=== PATIENT | female | born 1940 | race Caucasian/White ===

== ENCOUNTER → 2018-05-31 | Outpatient (CLI) | payer OTHER | LOC: FIMAGING 10:09 | PROVIDERS: ATTEND Physician Assistant | DX: R06.89 Other abnormalities of breathing (principal); J98.4 Other disorders of lung ==

== ENCOUNTER 2018-06-09 22:12 | Inpatient (IN) | payer OTHER ==
--- NOTE | 2018-06-09 22:30 | EDPHY ---
H & P Stated Complaint: TOLD SHE MAY HAVE A BLOOD CLOT. D-DIMER 0.87 TODAY Time Seen by Provider: 06/09/18 22:30 HPI/ROS: HPI CHIEF COMPLAINT: Positive D-dimer by her primary care doctor referred to the emergency room. HISTORY OF PRESENT ILLNESS: Patient is a 78-year-old female, she has a history of hypertension, hyperlipidemia, recently moved from [facility] to [facility] in February. She just establish care with a primary care doctor today. She saw them for shortness of breath. She states she has been chronically short of breath over the past few months getting worse. She states she has wheezing at times. Her primary care doctor send a D-dimer on her which turned out to be positive. She was referred to the emergency room due to this. The patient denies any chest pain. Denies pleuritic pain, denies hemoptysis. She denies any history of cardiovascular disease, denies history of CVA or PE, denies history of DVT. Past Medical History: Hypertension, hyperlipidemia Past Surgical History: Denies recent surgical history Social History: Denies drugs alcohol tobacco. Family History: Noncontributory ROS REVIEW OF SYSTEMS: 10 Systems were reviewed and negative with the exception of the elements mentioned in the history of present illness. Exam Constitutional triage nursing summary reviewed, vital signs reviewed, awake/ alert. Appears well nontoxic no acute distress Eyes normal conjunctivae and sclera, EOMI, PERRLA. HENT normal inspection, atraumatic, moist mucus membranes, no epistaxis, neck supple/ no meningismus, no raccoon eyes. Respiratory she has a bronchitic sounding cough on exam. Otherwise rather clear lungs. Cardiovascular rate normal, regular rhythm, no murmur, no edema, distal pulses normal. Gastrointestinal soft, non-tender, no rebound, no guarding, normal bowel sounds, no distension, no pulsatile mass. Genitourinary no CVA tenderness. Musculoskeletal no midline vertebral tenderness, full range of motion, no calf swelling, no tenderness of extremities, no meningismus, good pulses, neurovascularly intact. Skin pink, warm, & dry, no rash, skin atraumatic. Neurologic awake, alert and oriented x 3, AAOx3, moves all 4 extremities equally, motor intact, sensory intact, CN II-XII intact, normal cerebellar, normal vision, normal speech. Psychiatric normal mood/affect. Heme/Lymph/Immune no lymphadenopathy. Differential Diagnosis: Differential diagnosis includes but is not limited to: ACS, atypical chest pain, pneumothorax, pneumonia, pulmonary embolism, aortic dissection, congestive heart failure, tumor, musculoskeletal pain, esophageal pain, GERD, peptic ulcer disease, pancreatitis Medical Decision Making: Plan for this patient IV establishment with blood draw , CT angiogram of the chest rule out pulmonary embolism, basic labs, EKG, troponin. Re-evaluate. Re-evaluation: EKG interpretation by me on record in [facility] system. Impression time of EKG 2242, sinus tach 106, minimal ST depression lead V4 V5 V6, lead 1 aVL. No other acute ST elevation. CT angiogram of the chest faxed me by direct Radiology at time 1:16 a.m., no acute findings on CTA of the chest. Patient's troponin is pending. Patient's EKG has ST depression. Given the patient's unexplained shortness of breath plan will be for observation tonight in the hospital for further cardiac evaluation given her ischemic EKG. She does not have any chest pain. She does endorse worsening shortness of breath over the last 3 months with dyspnea on exertion. The hospitalist service consult Dr. Osborne agrees to admit Source: Patient - Personal History Current Tetanus/Diphtheria Vaccine: Yes Current Tetanus Diphtheria and Acellular Pertussis (TDAP): Yes - Medical/Surgical History Hx Asthma: Yes Hx Chronic Respiratory Disease: No Hx Diabetes: No Hx Cardiac Disease: No Hx Renal Disease: No Hx Cirrhosis: No Hx Alcoholism: No Hx HIV/AIDS: No Hx Splenectomy or Spleen Trauma: No Other PMH: LUMPECTOMY BREAST, BREAST CA, HIGH CHOLSETEROL, HTN - Social History Smoking Status: Former smoker Constitutional: Initial Vital Signs Temperature (C) 37.3 C 06/09/18 22:17 Heart Rate 118 H 06/09/18 22:17 Respiratory Rate 18 06/09/18 22:17 Blood Pressure 157/94 H 06/09/18 22:17 O2 Sat (%) 92 06/09/18 22:17 O2 Delivery Mode Room Air Allergies/Adverse Reactions: No Known Allergies Allergy (Unverified 06/09/18 22:20) Home Medications: Medication Instructions Recorded Hydrochlorothiazide [HCTZ (*)] 25 mg PO DAILY 06/09/18 Losartan/Hctz 50/12.5 [Hyzaar 1 tab PO 06/09/18 50/12.5MG (*)] Simvastatin 20 mg PO 06/09/18 Medical Decision Making - Data Points Laboratory Results: Laboratory Results 06/09/18 23:45 06/09/18 23:00 06/09/18 06/09/18 23:45 23:00 WBC 7.08 10^3/uL 10^3/uL (3.80-9.50) RBC 4.95 10^6/uL 10^6/uL (4.18-5.33) Hgb 14.5 g/dL g/dL (12.6-16.3) Hct 44.4 % % (38.0-47.0) MCV 89.7 fL fL (81.5-99.8) MCH 29.3 pg pg (27.9-34.1) MCHC 32.7 g/dL g/dL (32.4-36.7) RDW 14.6 % % (11.5-15.2) Plt Count 244 10^3/uL 10^3/uL (150-400) MPV 9.0 fL fL (8.7-11.7) Neut % (Auto) 44.8 % % (39.3-74.2) Lymph % (Auto) 39.1 % % (15.0-45.0) [place] % (Auto) 11.7 % % (4.5-13.0) Eos % (Auto) 3.7 % % (0.6-7.6) Baso % (Auto) 0.6 % % (0.3-1.7) Nucleat RBC Rel Count 0.0 % % (0.0-0.2) Absolute Neuts (auto) 3.17 10^3/uL 10^3/uL (1.70-6.50) Absolute Lymphs (auto) 2.77 10^3/uL 10^3/uL (1.00-3.00) Absolute Monos (auto) 0.83 10^3/uL H 10^3/uL (0.30-0.80) Absolute Eos (auto) 0.26 10^3/uL 10^3/uL (0.03-0.40) Absolute Basos (auto) 0.04 10^3/uL 10^3/uL (0.02-0.10) Absolute Nucleated RBC 0.00 10^3/uL 10^3/uL (0-0.01) Immature Gran % 0.1 % % (0.0-1.1) Immature Gran # 0.01 10^3/uL 10^3/uL (0.00-0.10) Sodium 139 mEq/L mEq/L (135-145) Potassium 3.4 mEq/L L mEq/L (3.5-5.2) Chloride 108 mEq/L mEq/L (97-110) Carbon Dioxide 20 mEq/l L mEq/l (22-31) Anion Gap 11 mEq/L mEq/L (6-14) BUN 29 mg/dL H mg/dL (7-23) Creatinine 1.1 mg/dL H mg/dL (0.6-1.0) Estimated GFR 48 Glucose 147 mg/dL H mg/dL (70-100) Calcium 8.7 mg/dL mg/dL (8.5-10.4) NT-Pro-B Natriuret Pep 35 pg/mL pg/mL (0-450) Medications Given: Discontinued Medications Albuterol/Ipratropium (Duoneb) 3 ml IH EDNOW ONE Stop: 06/09/18 22:36 Last Admin: 06/09/18 23:05 Dose: 3 ml Calcium Carbonate (Tums) 500 mg PO EDNOW ONE Stop: 06/09/18 23:10 Last Admin: 06/09/18 23:11 Dose: 500 mg Sodium Chloride (Ns) 1,000 mls @ 0 mls/hr IV EDNOW ONE; Wide Open PRN Reason: Protocol Stop: 06/09/18 22:32 Last Admin: 06/09/18 23:05 Dose: 1,000 mls Departure - Departure Disposition: [facility] Inpatient Acute Clinical Impression: Dyspnea Condition: Fair Referrals: Marcy Russell MD [Primary Care Provider] - As per Instructions
[2018-06-09] MEDS ORDERED: NS 1,000 ML IV ONE (22:31)
[2018-06-09] MEDS ORDERED: IPRATROPIUM/ALBUTEROL 3 ML DEYVIAL IH ONE (22:35)
[2018-06-09] MEDS ORDERED: CALCIUM CARBONATE 500 MG CHEWABLE TAB PO ONE ×2 (23:08→23:09)
[2018-06-09 23:59] LABS: PLATELET COUNT 244 10^3/uL (150-400)
[2018-06-10] MEDS ORDERED: IOPAMIDOL (ISOVUE 370) 100 ML BTL IV ONE (00:07)
[2018-06-10] MEDS ORDERED: methylPREDNISolone SOD SUCC 125 MG/2 ML VIAL IVP ONE (01:48)
[2018-06-10] MEDS ORDERED: ONDANSETRON DISINTEGRATING 4 MG TAB PO PRN (01:48)
[2018-06-10] MEDS ORDERED: ONDANSETRON 4 MG/2 ML VIAL IVP PRN (01:48)
[2018-06-10] MEDS ORDERED: ACETAMINOPHEN 325 MG TAB PO PRN (01:48)
[2018-06-10] MEDS ORDERED: ALBUTEROL 3 ML DEYVIAL IH PRN (01:48)
[2018-06-10] MEDS ORDERED: NS 1,000 ML IV SCH (02:00)
[2018-06-10 04:24] LABS: PLATELET COUNT 239 10^3/uL (150-400)
--- NOTE | 2018-06-10 07:55 | PDGENHP ---
History and Physical - Chief Complaint Shortness of breath - History of Present Illness Source-patient provides history appears reliable. EMR was reviewed and case discussed with ED provider. HPI-this is a very pleasant 78-year-old female with past medical history significant for HTN, HLD, breast cancer in remission, asthma who presents emergency department today from her PCPs office with noted elevated D-dimer as well as progressive shortness of breath. Patient reports that her symptoms have been ongoing for several months even prior to arriving to [place]. She was previously living in [facility] and moved in February. She is currently step early staying with her daughter. She saw her PCP today for worsening dyspnea. Patient reports that she has been having increasing wheezing. She feels like she has type chest tightness that is intermittent regardless of rest or exertion. She does report increasing cough and congestion in the ED following an nebulizer treatment. She denies any fevers or chills. No rhinorrhea no sore throat. She did experience some increased nausea today no vomiting. Patient reports occasional PND but nothing recently last several weeks. She denies any orthopnea or lower extremity edema. Patient does not wear any oxygen at home. Additionally patient reports that she had a full cardiac workup in [facility] within the past year. She denies any history of CHF, pulmonary hypertension or abnormal stress test. No family history of CAD or [place]. History Information - Allergies/Home Medication List Allergies/Adverse Reactions: No Known Allergies Allergy (Unverified 06/09/18 22:20) Home Medications: Hydrochlorothiazide [HCTZ (*)] 25 mg PO DAILY 06/09/18 [Last Taken Unknown] Losartan/Hctz 50/12.5 [Hyzaar 50/12.5MG (*)] 1 tab PO 06/09/18 [Last Taken Unknown] Simvastatin 20 mg PO 06/09/18 [Last Taken Unknown] I have personally reviewed and updated: family history, medical history, social history, surgical history - Past Medical History Additional medical history: HTN, HLD, asthma, skin cancer resected, breast cancer in remission. - Surgical History Additional surgical history: Breast lumpectomy with XRT for, right total knee arthroplasty, right shoulder repair - Family History Additional family history: Mother with history hypertension. No family members with CAD/mi. - Social History Smoking Status: Former smoker Tobacco Use: Cigarettes (Patient quit smoking 20 years ago.) Alcohol Use: None Drug Use: None Additional social history: Patient recently moved from [facility] 02/2018 to [facility]. She is temporarily living with her daughter and her family. Cor status-full. Review of Systems Review of Systems: ROS: 10pt was reviewed & negative except for what was stated in HPI & below Constitutional: Reports: no symptoms EENMT: Reports: no symptoms Cardiac: Reports: chest pain (Chest tightness central bilateral, nonradiating.) . Denies: edema, lightheadedness, palpitations Respiratory: Reports: cough, shortness of breath, wheezing. Denies: orthopnea Gastrointestinal: Reports: nausea. Denies: vomitting, diarrhea Genitourinary: Denies: discharge, hematuria Muscolosketal: Reports: no symptoms Skin: Reports: no symptoms Neurological: Reports: no symptoms Hematologic/Lymphatic: Reports: no symptoms Physical Exam Physical Exam: Selected Entries 06/09/18 22:17 Blood Pressure Automatic Method Heart Rate 118 H Respiratory 18 Rate O2 Sat (%) 92 Temperature (C) 37.3 C Blood Pressure 157/94 H Mean Arterial 115 H Pressure (MAP) O2 Delivery Room Air Mode Temperature Oral Source Temp Pulse Resp BP Pulse Ox 36.4 C 94 18 148/79 H 95 06/10/18 03:14 06/10/18 03:14 06/10/18 03:14 06/10/18 03:14 06/10/18 03:14 Constitutional: no apparent distress, chronically ill appearing, obese Eyes: PERRL (Slightly decreased reactivity light bilaterally but symmetric.), anicteric sclera, EOMI, No scleral injection Ears, Nose, Mouth, Throat: moist mucous membranes, other (No nasal discharge), No poor dentition Cardiovascular: regular rate and rhythym, no murmur, rub, or gallop, pulses symmetric bilaterally, No edema Peripheral Pulses: 1+: dorsalis-pedis (R), dorsalis-pedis (L) Respiratory: no respiratory distress, expiratory wheeze, inspiratory crackles ( Bibasilar intermittent), other (Congested-sounding cough intermittently during the interview.), No rhonchi Gastrointestinal: normoactive bowel sounds, soft, non-tender abdomen, no palpable masses, other (Obese abdomen), No distension Genitourinary: no bladder tenderness, No overton in urethra Skin: warm, normal color, no rashes or abrasions Musculoskeletal: full muscle strength (Four to 5/5 strength upper lower extremities. Patient able to sit up independently.), No pain with ROM Neurologic: AAOx3, sensation intact bilaterally, other (Grossly nonfocal exam.) , No weakness, No numbness, No facial droop Psychiatric: interacting appropriately, not anxious, not encephalopathic, thought process linear, No anxious Lab Data & Imaging Review 06/10/18 03:40 06/10/18 03:40 WBC 5.96 10^3/uL (3.80-9.50) 06/10/18 03:40 RBC 4.68 10^6/uL (4.18-5.33) 06/10/18 03:40 Hgb 13.7 g/dL (12.6-16.3) 06/10/18 03:40 Hct 42.1 % (38.0-47.0) 06/10/18 03:40 MCV 90.0 fL (81.5-99.8) 06/10/18 03:40 MCH 29.3 pg (27.9-34.1) 06/10/18 03:40 MCHC 32.5 g/dL (32.4-36.7) 06/10/18 03:40 RDW 14.8 % (11.5-15.2) 06/10/18 03:40 Plt Count 239 10^3/uL (150-400) 06/10/18 03:40 MPV 9.3 fL (8.7-11.7) 06/10/18 03:40 Neut % (Auto) 55.6 % (39.3-74.2) 06/10/18 03:40 Lymph % (Auto) 32.7 % (15.0-45.0) 06/10/18 03:40 [place] % (Auto) 8.1 % (4.5-13.0) 06/10/18 03:40 Eos % (Auto) 2.9 % (0.6-7.6) 06/10/18 03:40 Baso % (Auto) 0.5 % (0.3-1.7) 06/10/18 03:40 Nucleat RBC Rel Count 0.0 % (0.0-0.2) 06/10/18 03:40 Absolute Neuts (auto) 3.32 10^3/uL (1.70-6.50) 06/10/18 03:40 Absolute Lymphs (auto) 1.95 10^3/uL (1.00-3.00) 06/10/18 03:40 Absolute Monos (auto) 0.48 10^3/uL (0.30-0.80) 06/10/18 03:40 Absolute Eos (auto) 0.17 10^3/uL (0.03-0.40) 06/10/18 03:40 Absolute Basos (auto) 0.03 10^3/uL (0.02-0.10) 06/10/18 03:40 Absolute Nucleated RBC 0.00 10^3/uL (0-0.01) 06/10/18 03:40 Immature Gran % 0.2 % (0.0-1.1) 06/10/18 03:40 Immature Gran # 0.01 10^3/uL (0.00-0.10) 06/10/18 03:40 Sodium 139 mEq/L (135-145) 06/10/18 03:40 Potassium 3.4 mEq/L (3.5-5.2) L 06/10/18 03:40 Chloride 110 mEq/L (97-110) 06/10/18 03:40 Carbon Dioxide 20 mEq/l (22-31) L 06/10/18 03:40 Anion Gap 9 mEq/L (6-14) 06/10/18 03:40 BUN 24 mg/dL (7-23) H 06/10/18 03:40 Creatinine 1.0 mg/dL (0.6-1.0) 06/10/18 03:40 Estimated GFR 53 06/10/18 03:40 Glucose 130 mg/dL (70-100) H 06/10/18 03:40 Calcium 8.6 mg/dL (8.5-10.4) 06/10/18 03:40 POC Troponin I 0.00 ng/mL (0.00-0.08) 06/10/18 01:23 NT-Pro-B Natriuret Pep 35 pg/mL (0-450) 06/09/18 23:00 Imaging Review: CTA of the chest-negative for any acute findings. Negative for CHF infusions PE or pneumonia. There is some incidental findings of thyroid nodules in the left. Visualized and Interpreted imaging results: Yes Visualized and Interpreted EKG results: Yes EKG additional interpertation: Sinus tachycardia in the 100s. ST depressions anterolateral leads. T-wave inversions inferior leads. No acute ST elevations. QTC 469. Assessment & Plan Assessment: This is a very pleasant 78-year-old female with past medical history significant for HTN, HLD, breast cancer in remission, asthma who presents emergency department today from her PCPs office with noted elevated D-dimer as well as progressive shortness of breath. #Asthma exacerbation - patient with noted wheezing on exam. She also has increasing cough and reports improved respiratory status+ and LEs and chest discomfort following a nebulizer treatment. Will initiate steroid therapy, nebulizer therapy. Patient currently just on an inhaled steroid will increase that to include LABA as well so will initiate Spiriva as patient is already on fluticasone. Additionally patient does not have a rescue inhaler available and she will need this at discharge as well. Continue with oral steroids starting in the morning. #Shortness of breath - patient without any hypoxia. She does report improvement in her respiratory status as noted above continue treatment. Patient does have a HEART score of 5 however she reports that she had a full cardiac evaluation within the past year while she was living in [facility]. She does not believe however that she has had a recent stress test last for sugar was greater than 5 years ago. Will plan to trend cardiac enzymes and consider additional evaluation the morning as per day team following above respiratory treatment. # AK I - Suspect component of prerenal injury. Gentle IV fluid hydration monitor renal function. Baseline creatinine unknown. # benign essential hypertension - mildly elevated. Resume patient's HCTZ losartan in the morning if improvement in patient's renal function. #HLD - continue statin. Check lipid panel # hyperglycemia- check A1c FEN - IVF overnight. encourage po hydration. Electrolyte monitoring replacement if needed. Diet as tolerated. PPX-SCDs. Lovenox if patient should stay additional day otherwise encourage ambulation. Cor status-full Disposition-patient admitted observation status on PCU floor for close cardiac monitoring and potentially additional testing as per day team pending a.m. Studies.
[2018-06-10] MEDS: predniSONE 20 MG TAB PO SCH (08:29)
[2018-06-10] MEDS ORDERED: PROTOCOL POTASSIUM 1 DOSE MISC PRN (09:10)
[2018-06-10] MEDS: FLUTICASONE/SALMETER 100/50MCG DISKUS IH SCH ×2 (09:17→21:51)
[2018-06-10] MEDS ORDERED: POTASSIUM CL 10 MEQ TAB PO ONE ×2 (09:22→20:33)
[2018-06-10] MEDS: LOSARTAN/HCTZ 50/12.5 1 TAB PO SCH (09:33)
--- NOTE | 2018-06-10 12:40 | ASMTCMCOM ---
CM Note CM Note Notes: 06/10/2018 Case Management Note Met pt during rounds this morning. Pt admitted for shortness of breath. Pt lives a transient lifestyle, moving from [place] in the [place] to [place] in the fall to [place] in the winter to stay with her daughter and grandchlidren here. Pt recently returned from [facility], living there for approximately 4 years. Pt does not have a primary care provider at this time. BONILLA signed. There are no therapy evals ordered at this time. Provided information on financial counseling to address pt questions about insurance coverage. Case Management d/c poc: home independent to daughter's house with follow up as directed. Case Management available if needs change. Date Signed: 06/10/2018 12:40 PM Electronically Signed By:Carmen Pantoja RN
--- NOTE | 2018-06-10 16:35 | HOSPPROG ---
Hospitalist Progress Note Assessment/Plan: * Asthma exacerbation -steroids, nebs -not wheezing this am * CP/SOB -HEART SCORE 5 -reviewed EKG with cardiology Dr. Ge -ST depressions concerning, needs further eval -not candidate for standard treadmill due to ST depressions -drank caffeine this am -Exercise nuc tomorrow am * Sinus tachycardia -CTA chest negative for PE -check ECHO, TSH * HTN -Losartan/HCTZ * Hyperglycemia -HgA1c pending * Hyperlipidemia -statin * h/o breast cancer Subjective: Breathing better this am, this CP/MILLS has been ongoing for months. Eval in [facility] only included CXR and EKG. Objective: Vital Signs Temp Pulse Resp BP Pulse Ox 36.8 C 111 H 18 148/75 H 92 06/10/18 16:14 06/10/18 16:14 06/10/18 16:14 06/10/18 16:14 06/10/18 16:14 Laboratory Results 06/10/18 03:40 06/10/18 03:40 06/09/18 06/10/18 06/11/18 05:59 05:59 05:59 Intake Total 1360 500 Output Total 600 200 Balance 760 300 EKG viewed, my personal interpretation is - anterior ST depression > 1mm CTA chest - negative for PE - Physical Exam Constitutional: no apparent distress, appears nourished, not in pain Cardiovascular: regular rate and rhythym, no murmur, rub, or gallop Respiratory: no respiratory distress, no rales or rhonchi, clear to auscultation Gastrointestinal: normoactive bowel sounds, soft, non-tender abdomen, no palpable masses Skin: no rashes or abrasions, no fluctuance, no induration Neurologic: AAOx3, sensation intact bilaterally Psychiatric: interacting appropriately, not anxious, not encephalopathic, thought process linear ICD10 Worksheet Patient Problems: Problems Problem Status Onset Dyspnea Acute
--- NOTE | 2018-06-10 17:36 | PDMN ---
Medical Necessity Medical necessity: Change to IP, as of 06/10/18, per & MCG M-89; los >2 mn for ongoing management of chest pain w/shortness of breath, tachycardia, ST depressions & asthma exacerbation; requiring further workup/monitoring & respiratory supportive care
[2018-06-10] MEDS: IPRATROPIUM/ALBUTEROL 3 ML DEYVIAL IH SCH ×2 (17:41→21:51)
[2018-06-10] MEDS ORDERED: ATORVASTATIN CALCIUM 10 MG TAB PO SCH (21:00)
[2018-06-10] MEDS ORDERED: NITROGLYCERIN 0.4 MG BTL SL PRN (22:29)
[2018-06-10] MEDS ORDERED: CALCIUM CARBONATE 500 MG CHEWABLE TAB PO PRN (22:34)
[2018-06-10] MEDS ORDERED: diphenhydrAMINE 25 MG CAP PO PRN (22:40)
[2018-06-10] MEDS ORDERED: MELATONIN 3 MG TAB PO SCH (22:45)
[2018-06-11] MEDS: IPRATROPIUM/ALBUTEROL 3 ML DEYVIAL IH SCH ×2 (05:43→11:55)
[2018-06-11 07:44] VITALS: BP 175/96
[2018-06-11] MEDS: predniSONE 20 MG TAB PO SCH (09:13)
[2018-06-11] MEDS: LOSARTAN/HCTZ 50/12.5 1 TAB PO SCH (09:13)
[2018-06-11] MEDS: FLUTICASONE/SALMETER 100/50MCG DISKUS IH SCH (09:28)
[2018-06-11] MEDS ORDERED: BENZONATATE 100 MG CAP PO PRN (10:24)
[2018-06-11] MEDS ORDERED: AZITHROMYCIN 250 MG TAB PO SCH (10:30)
--- NOTE | 2018-06-11 11:32 | ASMTLACE ---
LACE Length of stay for Answers: Less than 1 day current admission Acuity / Level of Answers: No Care: Did the patient have an inpatient admission? Comorbidities - select Answers: Any tumor (including all that apply lymphoma or leukemia) Other Notes: HTN, HLD, Asthma # of Emergency department Answers: 1-2 visits in the last 6 months Score: 4 Date Signed: 06/11/2018 11:32 AM Electronically Signed By:Carmen Pantoja RN
--- NOTE | 2018-06-11 11:37 | ASDISCHSUM ---
Discharge Information Plan Status:Home with No Needs Medically Cleared to Leave:06/11/2018 Discharge Date:06/11/2018 CM D/C Disposition:Home, Routine, Self-Care ADT D/C Disposition:Home, Routine, Self-Care Projected Discharge Date:06/11/2018 Transportation at D/C: Discharge Delay Reason: Follow-Up Date:06/11/2018 Discharge Slot: Final Diagnosis: Placement Information Patient Contact Information Contact Name:MARION Relationship:Daughter Address: Home Phone: City: [facility] Phone: [facility] Code: Email: Financial Information Financial Class:Medicare Primary Plan Desc:MEDICARE OUTPATIENT Primary Plan Number:[id number] Secondary Plan Desc:[employer] Secondary Plan Number:[id number] Assessment Information LACE LACE Length of stay for Answers: Less than 1 day current admission Acuity / Level of Answers: No Care: Did the patient have an inpatient admission? Comorbidities - select Answers: Any tumor (including all that apply lymphoma or leukemia) Other Notes: HTN, HLD, Asthma # of Emergency department Answers: 1-2 visits in the last 6 months Score: 4 Date Signed: 06/11/2018 11:32 AM Electronically Signed By:Carmen Pantoja RN [facility] Progress Note CM Note CM Note Notes: 06/10/2018 Case Management Note Met pt during rounds this morning. Pt admitted for shortness of breath. Pt lives a transient lifestyle, moving from [place] in the [place] to [place] in the fall to [place] in the winter to stay with her daughter and grandchlidren here. Pt recently returned from [facility], living there for approximately 4 years. Pt does not have a primary care provider at this time. IRENE signed. There are no therapy evals ordered at this time. Provided information on financial counseling to address pt questions about insurance coverage. Case Management d/c poc: home independent to daughter's house with follow up as directed. Case Management available if needs change. Date Signed: 06/10/2018 12:40 PM Electronically Signed By:Carmen Pantoja RN Case Management Discharge Plan Note Case Management Discharge Discharge Order Complete? Answers: Yes Patient to Obtain Answers: Independently Medications Transportation Arranged Answers: Family/Friends Discharge Comments Notes: 06/11/2018 Case Management Note Pt to discharge independent with follow up as directed. Pt to stay with daughter. Date Signed: 06/11/2018 11:37 AM Electronically Signed By:Carmen Pantoja RN Intervention Information Intervention Type:*BONILLA-Signed Date of Service:06/11/2018 11:35 AM Patient Type:Inpatient Staff Member:ERIKA Pantoja Hillary Hours: Discipline: Severity: Comment: Intervention Type:*IM-Signed Date of Service:06/11/2018 11:35 AM Patient Type:Inpatient Staff Member:ERIKA Pantoja Hillary Hours: Discipline: Severity: Comment:
--- NOTE | 2018-06-11 17:45 | GDS ---
[f rep st] DISCHARGE SUMMARY DISCHARGE DIAGNOSES: 1. Asthma exacerbation. 2. Chest pain. 3. Hypertension. 4. Hyperlipidemia. 5. History of breast cancer. 6. Hyperglycemia. Hemoglobin A1c pending. HISTORY: Jamie is a 78-year-old female who presented with chest pain and shortness of breath. She did have some ST depressions on her EKG concerning for ischemia, so she was admitted for an ischemic evaluation. She was noted to be wheezing and is felt to have an asthma exacerbation perhaps brought on by her recent move into the area and exposure to a new environmental trigger. She does have a he art score of [address] depressions on her EKG initially, we planned on doing an exercise nu clear study. She could not do a standard treadmill due to her ST depressions. She was seen today by Dr. Dre Venegas. He had concerns regarding her recent asthma exacerbation and doing a treadmill te st acutely. Given her negative troponins, he recommends urgent outpatient stress testing once her as thma is improved. She was given the number for [facility]. Her asthma exacerbation I think was significant enough to cause persistent sinus tachycardia that is now improved after treatment with steroids and nebulizers. She is now on room air. I can continue t o elicit wheezing with forced expiration. She will discharge on oral and inhaled steroids, as well a s a course of azithromycin. Her respiratory PCR was negative. DISCHARGE MEDICATIONS: Please see computerized record for full detailed list. New medications: 1. Azithromycin 250 mg p.o. daily for 4 more days. 2. Tessalon Perles 200 mg p.o. three times daily as needed. 3. Advair 150 one puff twice daily. 4. Prednisone 40 mg p.o. daily for 4 more days. 5. Albuterol 1-2 puffs q.4 hours as needed. ADDITIONAL DISCHARGE INSTRUCTIONS: Outpatient exercise thallium test recommended. Patient to [facility] through [facility] as soon as her asthma exacerbation is better. Greater than 30 minutes' time was spent arranging this discharge. Patient was seen and examined by efra wheatley on the day of discharge. /[id number]/MODL
--- NOTE | 2018-06-11 23:29 | CPEKG ---
Test Reason : OPEN Blood Pressure : / mmHG Vent. Rate : 106 BPM Atrial Rate : 106 BPM P-R Int : 152 ms QRS Dur : 091 ms QT Int : 382 ms P-R-T Axes : 053 012 003 degrees QTc Int : 508 ms Sinus tachycardia Probable left atrial enlargement Low voltage, precordial leads Abnormal inferior Q waves Minimal ST depression, lateral leads Prolonged QT interval Confirmed by Paolo Ge ([id number] on 06/11/2018 11:28:52 PM Referred By: Cynthia Osborne Confirmed By:Paolo Ge
--- NOTE | 2018-06-15 11:24 | PQFORM ---
PHYSICIAN QUERY FORM Needs Your Response This query form is being sent to you to assure this patient record is coded properly. Please respond to the question below: SPIRITUAL COUNSELOR QUESTION: Dear Dr. Freeman, ANGELES was documented within the H&P, along with patients Creatinine levels of 1.1 mg/dL on 06/09. Patient was started on IV fluid hydration and renal function was noted to be monitored overnight. Based on the clinical indictors and your professional judgement, should the diagnosis of Acute Kidney Injury be included in the Discharge Summary? Yes ___x__No Other explanation of clinical findings Clinically unable to determine Thank you [facility] HIM/Coding Dept. INSTRUCTIONS FOR RESPONSE: Answer question by clicking on the "Edit Document" button. Move cursor to area below the stars. When complete, hit "Save." Click on the "Sign" button, then click "Sign" again. Type in your PIN and hit "Enter." MTDD
--- NOTE | 2018-06-17 07:56 | CPEKG ---
Test Reason : OPEN Blood Pressure : / mmHG Vent. Rate : 106 BPM Atrial Rate : 106 BPM P-R Int : 141 ms QRS Dur : 090 ms QT Int : 353 ms P-R-T Axes : 042 013 032 degrees QTc Int : 469 ms Sinus tachycardia Probable left atrial enlargement Low voltage, precordial leads Minimal ST depression, anterolateral leads Confirmed by Quincy Hinkle ([id number] on 06/17/2018 7:55:13 AM Referred By: Quincy Hinkle Confirmed By:Quincy Hinkle
== END 2018-06-11 13:28 | disposition home or self-care (01) | DRG 203 ==
LOC: F2W 06-10 02:55 → INTOOBSV 06-10 16:41 → OBSVTOIN 06-10 16:41
PROVIDERS: ADMIT Family Medicine; ATTEND Family Medicine
DX: J45.901 Unspecified asthma with (acute) exacerbation (principal); E86.9 Volume depletion, unspecified; R73.9 Hyperglycemia, unspecified; I10 Essential (primary) hypertension; E78.5 Hyperlipidemia, unspecified; Z95.3 Presence of xenogenic heart valve; Z87.891 Personal history of nicotine dependence
CPT/HCPCS: 84484-ER; J2930; J7512; J7613; Q9967